=== PATIENT | male | born 1990 | race Caucasian/White ===

== ENCOUNTER 2020-05-19 08:10 | Outpatient (REF) | payer MEDICAID, SELFPAY | END 2020-05-19 08:11 | disposition home or self-care (01) | LOC: HO.LAB 08:10 | PROVIDERS: Visit Provider Internal Medicine | DX: Z20.828 Contact with and (suspected) exposure to other viral communicable diseases (principal) | CPT/HCPCS: C9803; U0003 ==

== ENCOUNTER 2023-07-25 15:52 | Outpatient (REF) | payer MEDICAID, SELFPAY ==
[2023-07-25 17:33] LABS: MANUAL DIFF FLAG NO
[2023-07-25 17:38] LABS: Appearance Urine Cloudy; Basophils Absolute Auto 0.1 X10*3/uL (0.0-0.2); Basophils Percent Auto 0.7 % (0-2); Color Urine Yellow; Eosinophils Absolute Auto 0.6 X10*3/uL (0.0-0.4); Eosinophils Percent Auto 7.6 % (0-4); Glucose Urine UA Negative (Negative); Hematocrit 43.8 % (42.0-52.0); Imm Gran Abs Auto 0.02 X10*3/uL (0.00-0.03); Imm Gran Pct Auto 0.2 % (0.0-0.4); Leukocyte Esterase Urine Negative (Negative); Lymphocytes Absolute Auto 2.2 X10*3/uL (1.2-4.9); Lymphocytes Percent Auto 25.5 % (20-40); Mean Corpuscular HGB Conc 34.2 g/dl (31.0-36.0); Mean Corpuscular Hemoglobin 30.1 pg (27.0-33.0); Mean Corpuscular Volume 87.8 fL (80.0-98.0); Mean Platelet Volume 10.7 fL (9.4-12.4); Monocytes Absolute Auto 0.6 X10*3/uL (0.1-1.2); Monocytes Percent Auto 6.6 % (2-11); Neutrophils Percent Auto 59.4 % (45-73); Nitrite Urine Negative (Negative); Platelet Count 266 X10*3/uL (160-400); Red Blood Count 4.99 X10*6/uL (4.60-5.80); Red Cell Distribution Width 12.3 % (11.0-16.0); Specific Gravity - Urine >= 1.030 (1.005-1.025); Urine Blood Negative (Negative); Urine Ketones Trace mg/dL (Negative); Urine Protein Trace mg/dL (Neg-Trace); White Blood Count 8.5 X10*3/uL (4.8-10.8)
[2023-07-25 17:41] LABS: Bacteria Urine None Seen (None Seen); Hyaline Casts Urine 0-2 /LPF (0-2); RBC Urine 0-2 /HPF (0-2); Squamous Epithelial Cell Urine 0-2 /HPF (0-2); WBC Urine 0-5 /HPF (0-5)
[2023-07-25 17:50] LABS: Alanine Aminotransferase 24 U/L (0-40); Albumin Level 4.6 g/dL (3.5-5.0); Alkaline Phosphatase 96 U/L (39-117); Anion Gap 14 (12-20); Aspartate Amino Transferase 33 U/L (5-37); Bilirubin Total 0.4 mg/dL (0.0-1.0); Blood Urea Nitrogen 15 mg/dL (9-16); Calcium 9.3 mg/dL (8.4-10.2); Carbon Dioxide 22 mmol/L (22-29); Chloride 109 mmol/L (96-108); Cholesterol 187 mg/dL (<200); Estimated Glomerular Filt Rate > 60; Glucose Random 88 mg/dL (60-115); HDL Cholesterol 45 mg/dL (>40); LDL Cholesterol Calculated 117 mg/dL (<100); Potassium 3.5 mmol/L (3.3-5.1); Sodium 141 mmol/L (135-145); Total Protein 7.6 g/dL (6.5-8.0); Triglycerides 128 mg/dL (<150)
[2023-07-25 19:03] LABS: Reflex LDLD? No
[2023-07-26 14:24] LABS: HCV Log PCR <1.18 NOT DETECTED Log IU/mL (NOT DETECTED); HepC Viral Load <15 NOT DETECTED IU/mL (NOT DETECTED)
[2023-07-27 08:58] LABS: Absolute CD3 Count 1871 cells/uL (840-3060); Absolute CD4 Count 1067 cells/uL (490-1740); Absolute CD8 Count 822 cells/uL (180-1170); Absolute Lymphocytes 2493 cells/uL (850-3900); Percent CD3 Cells 75 % (57-85); Percent CD4 Cells 43 % (30-61); Percent CD8 Cells 33 % (12-42)
[2023-07-27 20:34] LABS: HIV RNA PCR Qn Copies 25 copies/mL (NOT DETECTED)
[2023-07-29 14:19] LABS: RPR Rapid Plasma Reagin NON-REACTIVE
== END 2023-07-25 15:53 | disposition home or self-care (01) ==
LOC: HO.HHCL 15:52
PROVIDERS: Visit Provider Student in an Organized Health Care Education/Training Program
DX: B20 Human immunodeficiency virus [HIV] disease (principal)
CPT/HCPCS: 36415; 80053; 80061; 81001; 82550; 85025; 86359; 86360; 86592; 87522; 87536

== ENCOUNTER 2023-12-08 08:26 | Outpatient (REF) | payer MEDICAID, SELFPAY ==
[2023-12-08 12:27] LABS: Alanine Aminotransferase 19 U/L (0-40); Albumin Level 4.5 g/dL (3.5-5.0); Alkaline Phosphatase 89 U/L (39-117); Anion Gap 12 (12-20); Aspartate Amino Transferase 29 U/L (5-37); Bilirubin Total 0.6 mg/dL (0.0-1.0); Blood Urea Nitrogen 10 mg/dL (9-16); Carbon Dioxide 23 mmol/L (22-29); Chloride 109 mmol/L (96-108); Estimated Glomerular Filt Rate > 60; Glucose Random 92 mg/dL (60-115); Potassium 4.4 mmol/L (3.3-5.1); Sodium 140 mmol/L (135-145); Total Protein 7.5 g/dL (6.5-8.0)
[2023-12-10 20:19] LABS: HIV RNA PCR Qn Copies NOT DETECTED copies/mL (NOT DETECTED); HIV RNA PCR Qn Log Copies NOT DETECTED (NOT DETECTED)
[2023-12-12 22:39] LABS: TS Negative Control Passed; TS Panel A 0; TS Panel B 0; TS Positive Control Passed; TSpotTB Negative (Negative)
== END 2023-12-08 08:27 | disposition home or self-care (01) ==
LOC: HO.HHCL 08:26
PROVIDERS: Visit Provider Student in an Organized Health Care Education/Training Program
DX: B20 Human immunodeficiency virus [HIV] disease (principal)
CPT/HCPCS: 36415; 80053; 82550; 86481; 87536

== ENCOUNTER 2024-02-27 18:06 | Outpatient (REF) | payer MEDICAID, SELFPAY ==
[2024-02-28 05:41] LABS: CT PCR NOT DETECTED (Not Detect.); NG PCR NOT DETECTED (Not Detect.)
[2024-03-03 19:03] LABS: C. Trachomatis RNA TMA, Throat NOT DETECTED; N. gonorrhoeae RNA TMA, Throat NOT DETECTED
[2024-03-04 00:34] LABS: C.Trachomatis RNA TMA, Rectal DETECTED; N.Gonorrhoeae RNA TMA, Rectal NOT DETECTED
== END 2024-02-27 18:07 | disposition home or self-care (01) ==
LOC: HO.HHCLNP 18:06
PROVIDERS: Visit Provider Student in an Organized Health Care Education/Training Program
DX: Z00.00 Encounter for general adult medical examination without abnormal findings (principal)
CPT/HCPCS: 87491; 87591; 88112

== ENCOUNTER 2024-05-25 08:30 | Outpatient (REF) | payer MEDICAID, SELFPAY ==
[2024-05-25 10:57] LABS: MANUAL DIFF FLAG NO
[2024-05-25 10:58] LABS: Basophils Percent Auto 0.6 % (0-2); Eosinophils Absolute Auto 0.5 X10*3/uL (0.0-0.4); Eosinophils Percent Auto 9.4 % (0-4); Hematocrit 45.9 % (42.0-52.0); Hemoglobin 15.5 g/dl (14.0-18.0); Imm Gran Abs Auto 0.01 X10*3/uL (0.00-0.03); Imm Gran Pct Auto 0.2 % (0.0-0.4); Lymphocytes Absolute Auto 2.1 X10*3/uL (1.2-4.9); Lymphocytes Percent Auto 41.1 % (20-40); Mean Corpuscular HGB Conc 33.8 g/dl (31.0-36.0); Mean Corpuscular Hemoglobin 30.4 pg (27.0-33.0); Mean Platelet Volume 10.2 fL (9.4-12.4); Monocytes Absolute Auto 0.4 X10*3/uL (0.1-1.2); Monocytes Percent Auto 6.9 % (2-11); Neutrophils Absolute Auto 2.1 x10*3/uL (2.0-8.3); Neutrophils Percent Auto 41.8 % (45-73); Platelet Count 238 X10*3/uL (160-400); Red Cell Distribution Width 12.7 % (11.0-16.0); White Blood Count 5.1 X10*3/uL (4.8-10.8)
[2024-05-25 11:32] LABS: Estimated Average Glucose 108 mg/dL; Hemoglobin A1C 137.8294 umol/L; Hemoglobin A1c % 5.4 % (<6.0); Total Hemoglobin (HGBA1C) 3859.0784 umol/L
[2024-05-25 11:37] LABS: HBS Num1 906.18 mIU/mL (0-7.99); HBc Num1 0.23 S/CO (0.00-0.79); HBsAGNum1 0.48 S/CO (0.00-0.99); Hepatitis B Core Antibody Nonreactive (Nonreactive); Hepatitis B Surface Antigen Negative (Negative); ~HepC Num1 0.19 S/CO (0.00-0.79); ~Hepatitis B Surface Antibody REACTIVE (Nonreactive); ~Hepatitis C Antibody Nonreactive (Nonreactive)
[2024-05-25 11:39] LABS: Syphilis Screen Reactive (Nonreactive)
[2024-05-25 12:08] LABS: Alanine Aminotransferase 39 U/L (0-40); Albumin Level 4.5 g/dL (3.5-5.0); Alkaline Phosphatase 94 U/L (39-117); Anion Gap 12 (12-20); Aspartate Amino Transferase 46 U/L (5-37); Bilirubin Total 0.7 mg/dL (0.0-1.0); Blood Urea Nitrogen 11 mg/dL (9-16); Calcium 9.3 mg/dL (8.4-10.2); Carbon Dioxide 25 mmol/L (22-29); Chloride 107 mmol/L (96-108); Cholesterol 192 mg/dL (<200); Estimated Glomerular Filt Rate > 60; Glucose Random 147 mg/dL (60-115); HDL Cholesterol 47 mg/dL (>40); LDL Cholesterol Calculated 125 mg/dL (<100); Potassium 3.9 mmol/L (3.3-5.1); Sodium 140 mmol/L (135-145); Total Protein 7.8 g/dL (6.5-8.0); Triglycerides 100 mg/dL (<150)
[2024-05-25 12:09] LABS: TSH reflex Free T4 0.93 uIU/mL (0.32-4.0)
[2024-05-28 15:13] LABS: HIV RNA PCR Qn Copies NOT DETECTED copies/mL (NOT DETECTED); HIV RNA PCR Qn Log Copies NOT DETECTED (NOT DETECTED)
[2024-05-28 21:59] LABS: Rubella IgG Antibody 1.49 Index; Rubeola IgG (Measles) >300.00 AU/mL
[2024-05-29 13:14] LABS: Absolute CD3 Count 1852 cells/uL (840-3060); Absolute CD4 Count 800 cells/uL (490-1740); Absolute CD8 Count 1027 cells/uL (180-1170); Absolute Lymphocytes 2070 cells/uL (850-3900); CD4 CD8 Ratio 0.78 (0.86-5.00); Percent CD3 Cells 89 % (57-85); Percent CD4 Cells 39 % (30-61); Percent CD8 Cells 50 % (12-42)
[2024-05-31 09:54] LABS: RPR Quantitative Non-Reactive (Nonreactive); T.Pallidum Particle Agg Test Reactive (Nonreactive)
== END 2024-05-25 08:31 | disposition home or self-care (01) ==
LOC: HO.HHCL 08:30
PROVIDERS: Visit Provider Student in an Organized Health Care Education/Training Program
DX: Z00.00 Encounter for general adult medical examination without abnormal findings (principal); Z21 Asymptomatic human immunodeficiency virus [HIV] infection status
CPT/HCPCS: 36415; 80053; 80061; 82550; 83036; 84443; 85025; 85027; 86359; 86360; 86592; 86704; 86706; 86735; 86762; 86765; 86780; 86787; 86803; 87340; 87536

== ENCOUNTER 2024-11-08 08:20 | Outpatient (REF) | payer MEDICAID, SELFPAY ==
--- OUTSIDE RECORDS SUMMARY | 2024-11-08 08:31 | XMS_ITS | Clinical Summary ---
Author Organization [facility] Address [address] [place] [address] Care Team Providers Care Aircraft Load Controller Name Role Phone Logan Zaragoza MD Primary Care Provider Allergies No known active allergies Medications albuterol HFA (PROAIR HFA ; PROVENTIL HFA ; VENTOLIN HFA) 90 mcg/actuation inhaler Inhale 2 Puffs into the lungs 4 times daily as needed for Cough, Wheezing or Shortness of Breath. 3 Active fluticasone propionate (FLONASE) 50 mcg/actuation nasal spray 1 [place] by Nasal route daily. 3 Active Active Problems Problem Noted Date Diagnosed Date Varicella 06/21/2024 Overview (06/21/2024): IMO update Asthma 06/21/2024 Immunizations Name Administration Dates Next Due DTP 01/01/1994, 1,1989,09/01,1989 [id number] (Pentacel) 2mo to less than 5yo 08/10/1990 Hepatitis B Pediatric (Enger ix B; Recombivax HB) to less than 20 yo 05/26/1998,01/07/1998,12/05/1997 MMR, measles mumps and rubel la Live (Priorix; M-M-R II) 12mo and older 02/25/1995,07/22/1990 Meningococcal MCV4P 05/24/2007 OPV 01/01/1994, 1,1989,07/04 Td Tetanus diptheria (Tdvax) 7yo and older 01/25/2002 Tdap Tetanus diptheria acell ular pertussis (Boostrix; Adacel) 7yo and older 05/24/2007 Surgical History Surgery Date Site/Laterality Comments OTHER SURGICAL HISTORY PROCEDURE: DENIES PREVIOUS SURGERY Medical History Medical History Date Comments Unspecified asthma(493.90) DX:Un specified asthma(493.90) Family History Medical History Relation Name Comments Hypertension Maternal Grandmother Asthma Mother mom as child Diabetes Paternal Grandfather Diabetes Paternal Grandmother Other cancer Paternal Grandmother Relation Name Status Comments Brother Alive kelsy twin Father Alive 1970 Maternal Grandmother Mother Alive 02/1972 Paternal Grandfather Paternal Grandmother Sister 1 Alive kirsty 07-11-89 Sister 2 Alive gallito loredo Social History Tobacco Use Types Packs/Day Years Used Date Smoking Tobacco: Every Day Alcohol Use Standard Drinks/Week Comments Yes 0 (1 standard drink = 0.6 oz pur e alcohol) Sex and Gender Information Value Date Recorded Sex Assigned at Not on file Legal Sex Male 4:33 AM EST Gender Identity Not on file Sexual Orientation Not on file Obstetrics History Plan of Treatment Health Maintenance Due Date Last Done Comments COVID-19 Vaccine (#1) 1994 Meningococcal ACWY Vaccine (2 - Risk 2-dose series) 07/19/2007 05/24/2007 Hepatitis A Vaccines (1 of 2 - Risk 2-dose series) 2008 Pneumococcal Vaccine: Pediatrics (0 to 5 Years) and At-Risk Patients (6 to 64 Years) (1 of 2 - PCV) 2008 DTaP,Tdap,and Td Vaccines (8 - Td or Tdap) 05/24/2017 05/24/2007, 01/25/2002, 01/01/1994, Additional history exists Cholesterol Screening (Lipid Panel) 06/22/2024 01/11/2013 Depression Screening 06/22/2024 12/03/2022 Social Influencers of Health Screening 06/22/2024 Influenza Vaccine (Season Ended) 2025 HIB Vaccines Completed 08/10/1990 IPV Vaccines Completed 01/01/1994, 09/18, 08/10/1990, Additional history exists MMR Vaccines Completed 02/25/1995, 07/22/1990 Hepatitis B Vaccines Completed 05/26/1998, 01/07/1998, 12/05/1997 Hepatitis C Screening Completed 01/11/2013 Varicella Vaccines Aged Out 06/21/2024 No longer eligible based on patient's age to complete this topic HPV Vaccines Aged Out No longer eligi ble based on patient's age to complete this topic Meningococcal B Vaccine Aged Out No l onger eligible based on patient's age to complete this topic RSV Immunization Patients Under 20 months Aged Out No longer eligible based on patient's age to complete this topic Procedures Procedure Name Priority Date/Time Associated Diagnosis Comments HEPATITIS C SCREENING Routine 01/11/2013 LIPID PANEL Routine 01/11/2013 from Last 3 Months or Most Recently Relevant to Health Maintenance Results * Hepatitis C Screening (01/11/2013) Hepatitis C Screening abstracted Historical Provider HEALTH MAINTENANCE Final Result * Lipid panel (01/11/2013) LDL/HDL Ratio 3 0 - 4 Triglycerides 68 0 - 100 mg/dL Cholesterol 127 0 - 200 mg/dL HDL 46 >=40 mg/dL LDL Cholesterol 68 0 - 100 mg/dL Blood Venous blood specimen / Unknown us Historical Provider LAB BLOOD ORDERABLES Alicia l Result from Last 3 Months or Most Recently Relevant to Health Maintenance Care Teams Aircraft Load Controller Relationship Specialty Start Date End Date Logan Zaragoza MD PCP - General Internal Medicine 10/05/12
[2024-11-08 11:11] LABS: MANUAL DIFF FLAG NO
[2024-11-08 11:18] LABS: Basophils Percent Auto 0.5 % (0-2); Eosinophils Absolute Auto 0.6 X10*3/uL (0.0-0.4); Eosinophils Percent Auto 10.2 % (0-4); Hematocrit 44.8 % (42.0-52.0); Imm Gran Abs Auto 0.01 X10*3/uL (0.00-0.03); Imm Gran Pct Auto 0.2 % (0.0-0.4); Lymphocytes Percent Auto 33.6 % (20-40); Mean Corpuscular HGB Conc 33.5 g/dl (31.0-36.0); Mean Corpuscular Hemoglobin 30.2 pg (27.0-33.0); Mean Corpuscular Volume 90.3 fL (80.0-98.0); Mean Platelet Volume 10.5 fL (9.4-12.4); Monocytes Absolute Auto 0.4 X10*3/uL (0.1-1.2); Monocytes Percent Auto 6.5 % (2-11); Neutrophils Absolute Auto 2.9 x10*3/uL (2.0-8.3); Platelet Count 239 X10*3/uL (160-400); Red Blood Count 4.96 X10*6/uL (4.60-5.80); Red Cell Distribution Width 12.9 % (11.0-16.0); White Blood Count 5.9 X10*3/uL (4.8-10.8)
[2024-11-08 12:33] LABS: Alanine Aminotransferase 27 U/L (0-40); Albumin Level 4.6 g/dL (3.5-5.0); Alkaline Phosphatase 100 U/L (39-117); Anion Gap 12 (12-20); Aspartate Amino Transferase 25 U/L (5-37); Bilirubin Total 0.4 mg/dL (0.0-1.0); Blood Urea Nitrogen 13 mg/dL (9-16); Calcium 9.3 mg/dL (8.4-10.2); Carbon Dioxide 23 mmol/L (22-29); Chloride 112 mmol/L (96-108); Estimated Glomerular Filt Rate > 60; Glucose Random 125 mg/dL (60-115); Potassium 3.6 mmol/L (3.3-5.1); Sodium 143 mmol/L (135-145); Total Protein 7.3 g/dL (6.5-8.0)
[2024-11-10 14:13] LABS: HIV RNA PCR Qn Copies NOT DETECTED copies/mL (NOT DETECTED); HIV RNA PCR Qn Log Copies NOT DETECTED (NOT DETECTED)
[2024-11-14 12:53] LABS: Absolute CD3 Count 1876 cells/uL (840-3060); Absolute CD4 Count 922 cells/uL (490-1740); Absolute CD8 Count 948 cells/uL (180-1170); Absolute Lymphocytes 2225 cells/uL (850-3900); CD4 CD8 Ratio 0.97 (0.86-5.00); Percent CD3 Cells 84 % (57-85); Percent CD4 Cells 41 % (30-61); Percent CD8 Cells 43 % (12-42)
== END 2024-11-08 08:21 | disposition home or self-care (01) ==
LOC: HO.HHCL 08:20
PROVIDERS: Visit Provider Student in an Organized Health Care Education/Training Program
DX: Z21 Asymptomatic human immunodeficiency virus [HIV] infection status (principal)
CPT/HCPCS: 36415; 80053; 85025; 86359; 86360; 87536

== ENCOUNTER 2025-02-21 11:29 | Outpatient (AMB) | payer MEDICAID, SELFPAY ==
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
[2025-02-21 11:39] VITALS: BP 128/88; PULSE 90; O2SAT 99; BMI 29.0
--- OUTSIDE RECORDS SUMMARY | 2025-02-21 13:13 | XMS_ITS | Clinical Summary ---
Author Organization [facility] Address [address] [place] [address] Care Team Providers Care Americanization Teacher Name Role Phone Logan Zaragoza MD Primary Care Provider [phone] Allergies No known active allergies Medications albuterol HFA (PROAIR HFA ; PROVENTIL HFA ; VENTOLIN HFA) 90 mcg/actuation inhaler Inhale 2 Puffs into the lungs 4 times daily as needed for Cough, Wheezing or Shortness of Breath. 3 Active fluticasone propionate (FLONASE) 50 mcg/actuation nasal spray 1 [place] by Nasal route daily. 3 Active Active Problems Problem Noted Date Diagnosed Date Varicella 06/21/2024 Overview (06/21/2024): IMO update Asthma 06/21/2024 Immunizations Name Administration Dates Next Due DTP 01/01/1994, 1,1989,09/01,1989 [id number] (Pentacel) 2mo to less than 5yo 08/10/1990 [...] 5 Years) and At-Risk Patients (6 to 49 Years) (1 of 2 - PCV) 2008 DTaP,Tdap,and Td Vaccines (8 - Td or Tdap) 05/24/2017 05/24/2007, 01/25/2002, 01/01/1994, Additional history exists Depression Screening 06/20/2024 Cholesterol Screening (Lipid Panel) 06/22/2024 01/11/2013 Social Influencers of Health Screening 06/22/2024 Influenza Vaccine (#1) 2025 HIB Vaccines Completed 08/10/1990 IPV Vaccines [...] Recently Relevant to Health Maintenance Care Teams Americanization Teacher Relationship Specialty Start Date End Date Logan Zaragoza MD PCP - General Internal Medicine 10/05/12
== END 2025-02-21 12:33 | disposition home or self-care (01) ==
LOC: HO.HSMS 11:30
PROVIDERS: PCP Student in an Organized Health Care Education/Training Program; Visit Provider Physician Assistant Medical
DX: G47.19 Other hypersomnia (principal); G25.81 Restless legs syndrome; F41.9 Anxiety disorder, unspecified; R53.82 Chronic fatigue, unspecified
CPT/HCPCS: 99204

== ENCOUNTER → 2025-02-21 11:29 | Outpatient (BNVA) | payer MEDICAID, SELFPAY | PROVIDERS: PCP Student in an Organized Health Care Education/Training Program; Visit Provider Physician Assistant Medical | DX: G47.19 Other hypersomnia (principal); G25.81 Restless legs syndrome; R53.83 Other fatigue; F41.9 Anxiety disorder, unspecified | CPT/HCPCS: 99212 ==

== ENCOUNTER 2025-03-11 08:25 | Outpatient (REF) | payer MEDICAID, SELFPAY ==
--- OUTSIDE RECORDS SUMMARY | 2025-03-11 09:36 | XMS_ITS | Clinical Summary ---
Author Organization [facility] Address [address] [place] [address] Care Team Providers Care [employer]ometrics Professor Name Role Phone Logan Zaragoza MD Primary Care Provider [phone] Allergies No known active allergies Medications albuterol HFA (PROAIR HFA ; PROVENTIL HFA ; VENTOLIN HFA) 90 mcg/actuation inhaler Inhale 2 Puffs into the lungs 4 times daily as needed for Cough, Wheezing or Shortness of Breath. 3 Active fluticasone propionate (FLONASE) 50 mcg/actuation nasal spray 1 [place] by Nasal route daily. 3 Active Active Problems Problem Noted Date Diagnosed Date Varicella 06/21/2024 Overview (06/21/2024): IMO update Asthma 06/21/2024 Immunizations Name Administration Dates Next Due DTP 01/01/1994, 1,1989,09/01,1989 [id number] (Pentacel) 2mo to less than 5yo 08/10/1990 [...] Health Screening 06/22/2024 Influenza Vaccine (#1) 2025 RSV Immunization Adult Patients (1 - 1-dose 75+ series) 2064 HIB Vaccines Completed 08/10/1990 IPV Vaccines Completed [...] mg/dL Blood Venous blood specimen / Unknown Historical Provider LAB BLOOD ORDERABLES Alicia l Result from Last 3 Months or Most Recently Relevant to Health Maintenance Care Teams [employer] Professor Relationship Specialty Start Date End Date Logan Zaragoza MD PCP - General Internal Medicine 10/05/12
[2025-03-11 11:19] LABS: MANUAL DIFF FLAG NO
[2025-03-11 11:37] LABS: Hematocrit 47.5 % (42.0-52.0); Hemoglobin 16.2 g/dl (14.0-18.0); Imm Gran Abs Auto 0.02 X10*3/uL (0.00-0.03); Imm Gran Pct Auto 0.2 % (0.0-0.4); Lymphocytes Absolute Auto 1.5 X10*3/uL (1.2-4.9); Mean Corpuscular HGB Conc 34.1 g/dl (31.0-36.0); Mean Corpuscular Hemoglobin 30.7 pg (27.0-33.0); Mean Corpuscular Volume 90.0 fL (80.0-98.0); NRBC Abs Auto 0.000 X10*3/uL (0.0-0.012); NRBC Pct Auto 0.0 /100WBC (0.0-0.2); Platelet Count 266 X10*3/uL (160-400); Red Blood Count 5.28 X10*6/uL (4.60-5.80); White Blood Count 8.1 X10*3/uL (4.8-10.8)
[2025-03-11 12:06] LABS: Alanine Aminotransferase 25 U/L (0-40); Albumin Level 4.8 g/dL (3.5-5.0); Alkaline Phosphatase 103 U/L (39-117); Anion Gap 11 (12-20); Aspartate Amino Transferase 27 U/L (5-37); Blood Urea Nitrogen 9 mg/dL (9-16); Calcium 9.4 mg/dL (8.4-10.2); Carbon Dioxide 25 mmol/L (22-29); Chloride 108 mmol/L (96-108); Estimated Glomerular Filt Rate > 60; Potassium 4.4 mmol/L (3.3-5.1); Sodium 140 mmol/L (135-145); Total Protein 7.8 g/dL (6.5-8.0)
[2025-03-11 12:14] LABS: Ferritin 138 ng/mL (20-250)
[2025-03-11 12:24] LABS: Folate 8.5 ng/mL (> or = 4.0); Vitamin B12 284 pg/mL (200-900)
[2025-03-13 01:02] LABS: HIV RNA PCR Qn Copies NOT DETECTED copies/mL (NOT DETECTED); HIV RNA PCR Qn Log Copies NOT DETECTED (NOT DETECTED)
[2025-03-15 16:03] LABS: Absolute CD3 Count 1225 cells/uL (840-3060); Absolute CD8 Count 659 cells/uL (180-1170); Percent CD3 Cells 83 % (57-85); Percent CD8 Cells 45 % (12-42)
== END 2025-03-11 08:26 | disposition home or self-care (01) ==
LOC: HO.HHCL 08:25
PROVIDERS: PCP Student in an Organized Health Care Education/Training Program; Referring Provider Student in an Organized Health Care Education/Training Program; Visit Provider Physician Assistant Medical
DX: G47.19 Other hypersomnia (principal); G25.81 Restless legs syndrome; F41.9 Anxiety disorder, unspecified; R53.83 Other fatigue; Z21 Asymptomatic human immunodeficiency virus [HIV] infection status
CPT/HCPCS: 36415; 80053; 82306; 82550; 82607; 82728; 82746; 83036; 83090; 83921; 84207; 84425; 84443; 85025; 86359; 86360; 87536

== ENCOUNTER 2025-04-01 | Outpatient (REF) | payer MEDICAID, SELFPAY ==
[2025-04-01 14:57] LABS: CT PCR Urine NOT DETECTED (Not Detect.); NG PCR Urine NOT DETECTED (Not Detect.)
[2025-04-02 19:43] LABS: C.Trachomatis RNA TMA, Rectal NOT DETECTED (NOT DETECTED); N.Gonorrhoeae RNA TMA, Rectal NOT DETECTED (NOT DETECTED)
[2025-04-02 21:59] LABS: C. Trachomatis RNA TMA, Throat NOT DETECTED (NOT DETECTED); N. gonorrhoeae RNA TMA, Throat NOT DETECTED (NOT DETECTED)
--- OUTSIDE RECORDS SUMMARY | 2025-05-14 10:59 | XMS_ITS | Clinical Summary ---
Author Organization [facility] Address [address] [place] [address] Care Team Providers Care Working Second Hand Name Role Phone Logan Zaragoza MD Primary Care Provider [phone] Allergies No known active allergies Medications albuterol HFA (PROAIR HFA ; PROVENTIL HFA ; VENTOLIN HFA) 90 mcg/actuation inhaler Inhale 2 Puffs into the lungs 4 times daily as needed for Cough, Wheezing or Shortness of Breath. 3 Active fluticasone propionate (FLONASE) 50 mcg/actuation nasal spray 1 [place] by Nasal route daily. 3 Active Active Problems Problem Noted Date Diagnosed Date Varicella 06/21/2024 Overview (06/21/2024): IMO update Asthma 06/21/2024 Immunizations Immunization Administration Dates Next Due DTP 01/01/1994, 1,1989,09/01,1989 [id number] (Pentacel) 2mo to less than 5yo 08/10/1990 [...] Years) (1 of 2 - PCV) 2008 HPV Vaccines (1 - Risk 3-dose SCDM series) 2016 DTaP,Tdap,and Td Vaccines (8 - Td or [...] Maintenance Results * Hepatitis C Screening (01/11/2013) Pathologist [facility] Hepatitis C Screening abstracted Historical Provider HEALTH [...] Recently Relevant to Health Maintenance Care Teams Working Second Hand Relationship Specialty Start Date End Date Logan Zaragoza MD PCP - General Internal Medicine 10/05/12
== END 2025-04-01 00:01 ==
LOC: HO.LNP
PROVIDERS: Visit Provider Student in an Organized Health Care Education/Training Program
DX: Z21 Asymptomatic human immunodeficiency virus [HIV] infection status (principal); Z20.2 Contact with and (suspected) exposure to infections with a predominantly sexual mode of transmission
CPT/HCPCS: 87491; 87591; 88112

== ENCOUNTER 2025-05-03 10:25 | Outpatient (REF) | payer MEDICAID, SELFPAY ==
[2025-05-03 13:18] LABS: MANUAL DIFF FLAG NO
[2025-05-03 13:24] LABS: Hematocrit 48.9 % (42.0-52.0); Hemoglobin 16.4 g/dl (14.0-18.0); Imm Gran Abs Auto 0.03 X10*3/uL (0.00-0.03); Imm Gran Pct Auto 0.5 % (0.0-0.4); Lymphocytes Absolute Auto 1.7 X10*3/uL (1.2-4.9); Mean Corpuscular HGB Conc 33.5 g/dl (31.0-36.0); Mean Corpuscular Hemoglobin 30.2 pg (27.0-33.0); Mean Corpuscular Volume 90.1 fL (80.0-98.0); NRBC Abs Auto 0.000 X10*3/uL (0.0-0.012); NRBC Pct Auto 0.0 /100WBC (0.0-0.2); Platelet Count 261 X10*3/uL (160-400); Red Blood Count 5.43 X10*6/uL (4.60-5.80); White Blood Count 5.8 X10*3/uL (4.8-10.8)
[2025-05-03 13:51] LABS: Alanine Aminotransferase 28 U/L (0-40); Albumin Level 5.1 g/dL (3.5-5.0); Alkaline Phosphatase 104 U/L (39-117); Anion Gap 12 (12-20); Aspartate Amino Transferase 32 U/L (5-37); Blood Urea Nitrogen 11 mg/dL (9-16); Calcium 9.8 mg/dL (8.4-10.2); Carbon Dioxide 23 mmol/L (22-29); Chloride 110 mmol/L (96-108); Cholesterol 210 mg/dL (<200); Estimated Glomerular Filt Rate > 60; HDL Cholesterol 53 mg/dL (>40); Potassium 3.9 mmol/L (3.3-5.1); Sodium 141 mmol/L (135-145); Total Protein 8.1 g/dL (6.5-8.0); Triglycerides 54 mg/dL (<150)
[2025-05-03 14:59] LABS: HBsAGNum1 0.40 S/CO (0.00-0.99); Hepatitis B Surface Antigen Negative (Negative); ~HepC Num1 0.11 S/CO (0.00-0.79); ~Hepatitis C Antibody Nonreactive (Nonreactive)
[2025-05-03 15:02] LABS: Syphilis Screen Reactive (Nonreactive)
[2025-05-06 08:49] LABS: TS Negative Control Passed; TS Panel A 0; TS Panel B 1; TS Positive Control Passed; TSpotTB Negative (Negative)
[2025-05-09 15:10] LABS: T.Pallidum Particle Agg Test Reactive (Nonreactive)
[2025-05-10 14:33] LABS: IgE Antibody (Anti-IgE IgG) 22 ng/mL (<168)
== END 2025-05-03 10:26 | disposition home or self-care (01) ==
LOC: HO.HHCL 10:25
PROVIDERS: PCP Student in an Organized Health Care Education/Training Program; Visit Provider Student in an Organized Health Care Education/Training Program
DX: Z00.00 Encounter for general adult medical examination without abnormal findings (principal); Z11.1 Encounter for screening for respiratory tuberculosis; Z11.59 Encounter for screening for other viral diseases; D72.10 Eosinophilia, unspecified; Z21 Asymptomatic human immunodeficiency virus [HIV] infection status; Z20.1 Contact with and (suspected) exposure to tuberculosis; Z20.5 Contact with and (suspected) exposure to viral hepatitis
CPT/HCPCS: 36415; 80053; 80061; 82550; 83036; 83520; 84443; 85025; 86481; 86592; 86682; 86780; 86803; 87340

== ENCOUNTER → 2025-05-29 09:22 | Outpatient (REF) | payer MEDICAID, SELFPAY | LOC: HO.SL 09:22 | PROVIDERS: PCP Student in an Organized Health Care Education/Training Program; Visit Provider Physician Assistant Medical | DX: G47.19 Other hypersomnia (principal) | CPT/HCPCS: 95806 ==

== ENCOUNTER → 2025-06-03 09:30 | Outpatient (BNV) | payer MEDICAID, SELFPAY | PROVIDERS: PCP Student in an Organized Health Care Education/Training Program; Visit Provider Psychiatry & Neurology Neurology | DX: G47.33 Obstructive sleep apnea (adult) (pediatric) (principal); G47.10 Hypersomnia, unspecified | CPT/HCPCS: 95806 ==

== ENCOUNTER 2025-06-10 08:40 | Outpatient (AMB) | payer MEDICAID, SELFPAY ==
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
--- OUTSIDE RECORDS SUMMARY | 2025-06-10 09:03 | XMS_ITS | Clinical Summary ---
Author Organization [facility] Address [address] [place] [address] Care Team Providers Care Evs Manager Name Role Phone Logan Zaragoza MD Primary Care Provider [phone] Allergies No known active allergies Medications albuterol HFA (PROAIR HFA ; PROVENTIL HFA ; VENTOLIN HFA) 90 mcg/actuation inhaler Inhale 2 Puffs into the lungs 4 times daily as needed for Cough, Wheezing or Shortness of Breath. 3 Active fluticasone propionate (FLONASE) 50 mcg/actuation nasal spray 1 [place] by Nasal route daily. 3 Active Active Problems Problem Noted Date Diagnosed Date Varicella 06/21/2024 Overview (06/21/2024): IMO update Asthma 06/21/2024 Immunizations Immunization Administration Dates Next Due DTP 01/01/1994, 1,1989,09/01,1989 [id number] (Pentacel) 2mo to less than 5yo 08/10/1990 [...] on file Sexual Orientation Not on file Plan of Treatment Health Maintenance Due Date [...] Results * Hepatitis C Screening (01/11/2013) Pathologist [facility] Hepatitis C Screening abstracted Historical Provider HEALTH [...] Recently Relevant to Health Maintenance Care Teams Evs Manager Relationship Specialty Start Date End Date Logan Zaragoza MD PCP - General Internal Medicine 10/05/12
[2025-06-10 09:04] VITALS: BP 126/92; PULSE 98; O2SAT 98; BMI 25.3
== END 2025-06-10 09:50 | disposition home or self-care (01) ==
LOC: HO.HSMS 08:40
PROVIDERS: PCP Student in an Organized Health Care Education/Training Program; Visit Provider Physician Assistant Medical
DX: G47.19 Other hypersomnia (principal); G25.81 Restless legs syndrome; F41.9 Anxiety disorder, unspecified; R53.82 Chronic fatigue, unspecified
CPT/HCPCS: 99214

== ENCOUNTER → 2025-06-10 08:40 | Outpatient (BNVA) | payer MEDICAID, SELFPAY | PROVIDERS: PCP Student in an Organized Health Care Education/Training Program; Visit Provider Physician Assistant Medical | DX: G47.19 Other hypersomnia (principal); G25.81 Restless legs syndrome; R53.82 Chronic fatigue, unspecified; F17.210 Nicotine dependence, cigarettes, uncomplicated; F41.9 Anxiety disorder, unspecified | CPT/HCPCS: 99212 ==